=== PATIENT | female | born 1940 | race Caucasian/White ===

== ENCOUNTER 2017-09-14 06:39 | Inpatient (IN) ==
[~2017-09-14 06:39] MED LIST: ACETAMINOPHEN 500 MG TABLET PO ONE; FAMOTIDINE PB 20 MG/50 ML BAG IV ONE; LIDOCAINE 1% (10mg/ml) 2mL INJ PF SDV ID ONE; METOCLOPRAMIDE 10mg/2ml INJECTION IVP ONE; ONDANSETRON 4 MG/2 ML INJECTION IVP ONE
[2017-09-14 07:32] VITALS: BMI 35.9
[2017-09-14] MEDS: LR 1,000 ML IV SCH ×2 (07:40→09:09)
[2017-09-14] MEDS: NOZIN NASAL SWAB NAS SCH ×5 (07:45→23:04)
[2017-09-14] MEDS ORDERED: EPINEPHrine PF 0.25 MG, BUPIVACAINE 0.25% PF 30 ML, KETOROLAC INJ 60 MG in NS 30 ML OPSITE ONE (08:00)
--- NOTE | 2017-09-14 08:04 | History & Physical Update ---
- History and Physical Update Date: 09/14/17 Update: I evaluated this patient and found no changes in the history and clinical exam findings. The treatment plan and recommendations are also unchanged from the previous documentation.
--- NOTE | 2017-09-14 08:06 | Anesthesia Preoperative Report ---
Anesthesia Preoperative Record - Date and Time Date: 09/14/17 Preoperative Diagnosis: Lt TKA M17.12 NPO Since Date: 09/13/17 NPO Since Time: 23:00 Allergies/Adverse Reactions: Allergies Allergy/AdvReac Type Severity Reaction Status Date / Time Sulfa (Sulfonamide Allergy Intermediate HIVES Verified 09/14/17 07:22 Antibiotics) Iodinated Contrast- Oral and Allergy Mild RASH Verified 09/14/17 07:22 IV Dye meperidine HCl AdvReac Severe N/V Uncoded 09/14/17 07:22 - Vital Signs Vital Signs: Temperature 98.2 F 09/14/17 07:10 Pulse Rate 62 09/14/17 07:33 Respiratory Rate 16 09/14/17 07:10 Blood Pressure 183/79 H 09/14/17 07:10 Pulse Oximetry 96 09/14/17 07:10 Height and Weight: Height 5 ft 1 in Weight 86.3 kg Body Mass Index 35.9 - Medications Inpatient Medications: Current Medications Cefazolin Sodium (Kefzol 1 Gm Vial) 2 g IVP PREOP ONE Stop: 09/14/17 08:31 Epinephrine HCl 0.25 mg/Bupivacaine HCl 30 ml/Ketorolac Tromethamine 60 mg/ Sodium Chloride 62.25 mls @ 1 mls/hr OPSITE INTRAOP ONE PRN Reason: Protocol Stop: 09/16/17 22:14 Tranexamic Acid 3,000 mg/ (Sodium Chloride) 75 mls @ 0 mls/hr TOP INTRAOP ONE PRN Reason: As Directed Stop: 09/14/17 12:01 Lactated Ringer's (Lactated Ringers) 1,000 mls @ 50 mls/hr IV .Q20H [facility] Last Admin: 09/14/17 07:40 Dose: 50 mls/hr Isopropyl Alcohol (Nozin Nasal Swab) 1 each BECKY Q1M SHARRON Stop: 09/14/17 12:03 Last Admin: 09/14/17 07:45 Dose: 1 each Sodium Chloride (Iv Flush) 10 - 80 ml IV PRN PRN PRN Reason: Flushing Home Medications: Home Medications Medication Instructions Recorded Confirmed Type Levothyroxine Tab [Synthroid] 100 mcg PO DAILY #0 12/02/09 09/14/17 History Metformin HCl [Glucophage] 500 mg PO BID #0 12/02/09 09/14/17 History Albuterol HFA Inhaler [Ventolin 2 puff INH QID PRN 08/17/16 09/14/17 History Hfa 90 mcg/actuation] Apixaban [Eliquis] 5 mg PO BID 08/17/16 09/14/17 History Cholecalciferol (Vitamin D3) 1 tab PO DAILY 08/17/16 09/14/17 History [Vitamin D3] Citalopram [Celexa] 40 mg PO DAILY 08/17/16 09/14/17 History HydroCHLOROthiazide [Hydrodiuril] 25 mg PO DAILY 08/17/16 09/14/17 History Magnesium Oxide [Magnesium] 500 mg PO DAILY 08/17/16 09/14/17 History Potassium 1 tab PO DAILY 08/17/16 09/14/17 History ALPRAZolam [Xanax 0.25 mg] 0.25 mg PO BID PRN 09/06/17 09/14/17 History Amlodipine [Norvasc] 5 mg PO HS 09/06/17 09/14/17 History Atenolol [Tenormin] 25 mg PO DAILY 09/06/17 09/14/17 History Atorvastatin [Lipitor] 1 tab PO AM 09/06/17 09/14/17 History Lisinopril [Prinivil] 20 mg PO BID 09/06/17 09/14/17 History Omeprazole Magnesium [Prilosec Otc] 20 mg PO DAILY 09/06/17 09/14/17 History Is Patient on Beta Shital?: Yes - Medical History Respiratory: Reports: Asthma ("mild"), Other (h/o reactive airway disease) DENIES: Sleep Apnea Cardiovascular: Reports: Arrhythmia (A FIB, currently SR with PACs), Hypertension, High Cholesterol Gastrointestional: Reports: Gastroesophageal Reflux Disease (moderately controlled) Neuro/Musculoskeletal: Reports: Back Problems, Depression Renal/Endocrine: Reports: Thyroid Disease (hypothyroid), Other (metabolic syndrome) Comment Only: Diabetes Mellitus Type 2 (takes metformin for PCOS) Other History: Reports: Anesthesia Reactions (severe n/v), Cancer (BCC on face, excision) - Surgical History HEENT Surgeries: Reports: Tonsillectomy, Other (wears glasses) Cardiac Surgeries/Treatments: Reports: Other (stress test and echo) Endocrine Surgery/Treatments: Reports: Thyroidectomy GI Surgery/Treatments: Reports: Cholecystectomy, Colonoscopy Musculoskeletal Surgery/Tx: Reports: Total Hip Replacement (RIGHT), Other ( lumbar laminectomy) Reproductive Surgery/Treatment: Reports: Hysterectomy Anesthesia Reactions: Nausea and Vomiting Hx Family Anesthesia Reaction: No History of Motion Sickness: No - Social History Smoking Status: Never smoker Substance Use Type: does not use Alcohol Intake Frequency: does not drink - Pertinent Findings Laboratory: CBC and BMP 09/14/17 07:40 BMP 09/14/17 07:40 Sodium 136 Potassium 4.1 Chloride 100 Carbon Dioxide 24 BUN 15.0 Creatinine 0.7 Glucose 113 H Calcium 9.4 EKG: Sinus Rhythm - Physical Exam Respiratory Exam: Present: lungs clear, bilateral breath sounds equal Cardiovascular Exam: Present: regular rate and rhythm - Airway Assessment Mallampati Score: II TMD: 3 Fingerbreadths Neck Extension: good Overall Assessment: no airway concerns - ASA ASA Score: 3 - Plan Anesthesia: General Inhalation Gases, Neuroaxial Regional/Trunk Block: Spinal - Discussion Discussion: Discussed risks/options/alternatives of anesthesia and questions answered. Patient consents. Nursing pain assessment noted. Attestation Statement: Prior to the delivery of any anesthetic medication, I examined the patient, developed the plan, obtained the patient's consent and discussed the risk and benefits of the procedure with the patient/guardian. - Additional Information Seen by Anesthesia: Yes
[2017-09-14] MEDS ORDERED: MIDAZOLAM 2mg/2ml INJECTION ONE (08:16)
[2017-09-14] MEDS ORDERED: LIDOCAINE 2% (100mg/5mL) 5ml PF SDV ONE (08:19)
[2017-09-14] MEDS ORDERED: BUPIVACAINE 0.75%/DEXTROSE 8.5% SPINAL 2 ML AMPULE IJ ONE (08:19)
[2017-09-14] MEDS ORDERED: PROPOFOL 40 ML ONE (08:23)
[2017-09-14] MEDS ORDERED: VANCOMYCIN 1,000 MG INJECTION IAR ONE (08:27)
[2017-09-14] MEDS ORDERED: CEFAZOLIN 1 G INJECTION IVP ONE (08:30)
[2017-09-14] MEDS ORDERED: EPHEDRINE 50mg/ml INJECTION ONE (09:37)
[2017-09-14] MEDS ORDERED: ROPIVACAINE 0.5% (5mg/ml) 30ml INJ ONE (10:16)
--- NOTE | 2017-09-14 10:40 | Operative Note ---
- Procedure Preoperative Diagnosis: Left knee primary degenerative joint disease Postoperative Diagnosis: Same as preoperative diagnosis. Surgeon: Niesha Fernandez MD Materials Management Clerk: Gregory Moore Complications: None. Anesthesia: Spinal. Estimated Blood Loss: See Anesthesia Record. Fluids: Please see Anesthesia Record. Description of Procedure: Mrs. Khan and her left knee were identified and marked in the preoperative holding area. She was brought back to the operating suite. Spinal anesthetic was administered and she was placed supine on the operating table. The left lower extremity was prepped and draped in my normal sterile fashion. Timeout was performed. The [employer] robotic arm was used during the surgery. She had a fixed varus deformity with slight hyperextension. A standard anterior midline incision followed by medial parapatellar arthrotomy was performed. Anterior fat pad and meniscus were removed. The patella was everted and a patella osteotomy was performed leaving 12mm of bone. Tibial and femoral arrays and checkpoints were placed both within the original incision. The bone was then registered with the [employer] robot. Osteophytes were removed and gaps were captured both 90 and 0 degrees with correction. The knee was balanced placing 1 of varus in the femur and 1 of varus in the tibia. I left the extension gap 17 given her hyperextension. The [employer] robotic arm was then used to assist with the bone cuts. Posterior osteophytes and remaining meniscus were removed. Trial components were placed. We used a 3 femur and a 3 tibia with a 9 mm spacer and a 32 patella. She tracked well and was well balanced throughout range of motion. The tibia was stamped at the proper rotation. Trial components fit well and bone quality was adequate so we proceeded with press-fit components. Components were press-fit into place. A final spacer was also placed. She was a touch tight medially so used a 18-gauge needle to perform a partial release of the MCL. The knee was ranged one more time to ensure good stability, balance and patellar tracking. 1 g of TXA was allowed to sit in the wound for 5 minutes and then suctioned out. 1 g of vancomycin powder was then placed into the knee joint. The capsulotomy was then closed with #1 Vicryl. I then left my hotel assistant manager to close the subcutaneous tissue with 2-0 Vicryl and a running 0 V-lock. Running 4-0 Monocryl will be used in the subcuticular layer. After drapes are removed patient will be taken to recovery room under the care of anesthesia.
[2017-09-14] MEDS ORDERED: ONDANSETRON 4 MG/2 ML INJECTION IVP PRN (11:12)
--- NOTE | 2017-09-14 11:35 | XRay Report ---
Indication: postoperative image PROCEDURE: XR knee LT 2V: Encounter: Initial Comparison: July 10, 2017 Findings: Postoperative changes of left total knee replacement are seen. There is expected postoperative subcutaneous gas. No evidence of hardware failure or acute fracture. No retained radiopaque surgical instruments or sponges. Overlying material causing artifact. Impression: New left total knee prosthesis without evidence of immediate complication. .
[2017-09-14] MEDS ORDERED: LORazepam 1 MG TABLET PO PRN (11:52)
[2017-09-14] MEDS ORDERED: NOZIN NASAL SWAB NAS ONE (11:52)
[2017-09-14] MEDS ORDERED: DiphenhydrAMINE 25 MG CAPSULE PO PRN (11:52)
[2017-09-14] MEDS ORDERED: DiphenhydrAMINE 50 MG/ML INJECTION IVP PRN (11:52)
[2017-09-14] MEDS: NS 1,000 ML IV SCH (11:55)
[2017-09-14] MEDS ORDERED: TRANEXAMIC ACID 3,000 MG in NS 45 ML TOP ONE (12:00)
[2017-09-14] MEDS ORDERED: SALINE FLUSH 10ml SYRINGE IV PRN (12:00)
[2017-09-14] MEDS: ACETAMINOPHEN 325 MG TABLET PO SCH ×3 (12:23→20:30)
[2017-09-14] MEDS ORDERED: ALBUTEROL 2.5mg/3ml (0.083%) NEB AEROSOL PRN (12:43)
[2017-09-14] MEDS: Oxycodone *IR* 5 MG TABLET PO PRN ×2 (13:38→19:31)
[2017-09-14] MEDS: ONDANSETRON 4 MG/2 ML INJECTION IVP PRN ×2 (14:30→19:31)
[2017-09-14] MEDS: INSULIN ASPART 100unit/ml INJECTION SQ PRN (14:31)
[2017-09-14] MEDS: CEFAZOLIN 2 G in NS 100 ML IV SCH (17:08)
--- NOTE | 2017-09-14 18:58 | Anesthesia Postoperative Note ---
- Date and Time Date: 09/14/17 Time: 11:55 - Status Patient Participated in Evaluation: Patient Participated in Person Vital Signs: Temperature 97.8 F 09/14/17 12:03 Pulse Rate 67 09/14/17 18:03 Respiratory Rate 16 09/14/17 16:09 Blood Pressure 124/62 09/14/17 18:03 Pulse Oximetry 97 09/14/17 18:03 Respiratory Function: Airway Patent Cardiovascular Function: Regular Pulse EKG: Sinus Rhythm Mental Status: Alert and Oriented Pain Intensity: 0 Hydration: IV Infusing Complications During Recover: None Apparent - Follow-Up Instructions Instructions: Per Surgeon
--- NOTE | 2017-09-14 18:59 | Anesthesia Procedure Note ---
Peripheral Nerve Blockade - Procedure Physician: Mike Fernandez MD Date: 09/14/17 Surgical Procedure: L TKA Discussion: Discussed risks/options/alternatives of anesthesia and questions answered. Patient consents. Nursing pain assessment noted. Block Start: 11:14 Block Stop: 11:17 Block Employed: Adductor Canal-Left Indication: Post-Operative Pain Approach: Left Side Confirmed Position: Supine Patient: Consent, Risks/Benefits Discussed, Informed, Post Block Act. Discussed IV Sedation: No (spinal) Initial Vital Signs: Temperature 98.2 F 09/14/17 07:10 Temperature Source Oral 09/14/17 07:10 Pulse Rate 70 09/14/17 07:10 Respiratory Rate 16 09/14/17 07:10 Blood Pressure 183/79 H 09/14/17 07:10 Blood Pressure Mean 113 09/14/17 07:10 Blood Pressure Position Sitting 09/14/17 07:10 Pulse Oximetry 96 09/14/17 07:10 Oxygen Delivery Method 09/14/17 07:10 Post Vital Signs: Temperature 97.8 F 09/14/17 12:03 Pulse Rate 67 09/14/17 18:03 Respiratory Rate 16 09/14/17 16:09 Blood Pressure 124/62 09/14/17 18:03 Pulse Oximetry 97 09/14/17 18:03 Initial Pain Pain Score: 0 Post Block Pain Score: 0 Prep: Chlorhexadine/ETOH Ultrasound Used?: Yes - Injectate Ropivacaine (%): 0.5 Ropivacaine (mL): 30 Was Epi 1:200,000 Used?: No Injection: Injection made incrementally with constant monitoring and aspiration every ml
[2017-09-14] MEDS: DOCUSATE SODIUM 100 MG CAPSULE PO SCH (20:30)
[2017-09-14] MEDS: LISINOPRIL 20 MG TABLET PO SCH (20:30)
[2017-09-14] MEDS: AMLODIPINE 5 MG TABLET PO SCH (20:31)
[2017-09-14] MEDS: SENNOSIDES 8.6 MG TABLET PO SCH (20:31)
[2017-09-14] MEDS: ATORVASTATIN 20 MG TABLET PO SCH (20:31)
[2017-09-14] MEDS: APIXABAN 5 MG TABLET PO SCH (20:31)
[2017-09-15] MEDS: NS 1,000 ML IV SCH ×2 (00:24→14:20)
[2017-09-15] MEDS: CEFAZOLIN 2 G in NS 100 ML IV SCH (00:24)
[2017-09-15] MEDS: ONDANSETRON 4 MG/2 ML INJECTION IVP PRN (04:12)
[2017-09-15] MEDS: Oxycodone *IR* 5 MG TABLET PO PRN ×3 (04:37→22:59)
[2017-09-15] MEDS: NOZIN NASAL SWAB NAS SCH ×4 (05:02→21:02)
--- NOTE | 2017-09-15 07:57 | Orthopedic Progress Note ---
Date: Date: 09/15/17 Time: 751 Subjective/Severity of Illness: Luz is doing well this AM. No CP, cough or SOA. She has been up with good tolerance. She is hopeful to go home today. Pain is a 3-4 level. Some nausea with pain meds. Orthopedic Exam Vital signs: Temperature 96.8 F 09/15/17 07:30 Pulse Rate 82 09/15/17 07:30 Respiratory Rate 14 09/15/17 07:30 Blood Pressure 133/62 09/15/17 07:30 Pulse Oximetry 96 09/15/17 07:30 - Constitutional General Appearance: Present: alert, cooperative, no acute distress - Respiratory Exam Present: non-labored - Cardiovascular Exam Present: pedal pulses intact - Extremities Exam Present: pulses intact. Absent: calf tenderness - Dressing Dressing: bloody drainage (Mild shaddowing on the lower dressing. ) - Integumentary Exam Present: pink, warm, dry - Neurological Exam Present: intact to light touch, no deficits - Psychiatric Exam Present: alert - Labs Result Diagrams: 09/15/17 04:24 09/15/17 04:24 Abnormal lab results 09/14/17 09/15/17 09/15/17 Range/Units 07:40 04:24 04:24 Hgb 10.6 L (12-16) GM/DL Sodium 134 L (136-146) MEQ/L BUN 19.0 H (7-17) MG/DL Glucose 113 H 117 H (65-110) MG/DL Calcium 8.3 L D (8.4-10.2) MG/DL H & H 09/15/17 Range/Units 04:24 Hgb 10.6 L (12-16) GM/DL Orthopedic Assessment and Plan (1) Primary osteoarthritis of left knee Status: Chronic Assessment and Plan: Luz is doing well except for some off and on nausea. She wants to stay with the Oxycodone for now. Shadowing on the dressing. Observe. Aspirin 81mg BID for 6 weeks to cover for DVT. Hold HCTZ this am due to slight drop in Na. Mobilize with PT / OT. Case mgmt for discharge planning. - Anticoagulation Therapy Anticoagulation: ASA 81 mg PO BID x6 weeks Hospital Course Summary Disclaimer: The visit summary below is not to be considered part of the above Progress Note.
[2017-09-15] MEDS: APIXABAN 5 MG TABLET PO SCH ×2 (08:31→20:46)
[2017-09-15] MEDS: ACETAMINOPHEN 325 MG TABLET PO SCH ×4 (08:31→20:46)
[2017-09-15] MEDS: ATENOLOL 25 MG TABLET PO SCH (08:32)
[2017-09-15] MEDS: CITALOPRAM 40 MG TABLET PO SCH (08:32)
[2017-09-15] MEDS: DOCUSATE SODIUM 100 MG CAPSULE PO SCH ×2 (08:32→20:46)
[2017-09-15] MEDS: OMEPRAZOLE 20 MG CAPSULE PO SCH (08:33)
[2017-09-15] MEDS: POLYETHYL GLYCOL 3350 17gm PACKET PO SCH (08:33)
[2017-09-15] MEDS: LISINOPRIL 20 MG TABLET PO SCH ×2 (08:33→20:46)
[2017-09-15] MEDS: MAGNESIUM OXIDE 400 MG TABLET PO SCH (08:33)
[2017-09-15] MEDS ORDERED: POTASSIUM PO SCH (09:00)
[2017-09-15] MEDS ORDERED: LEVOTHYROXINE 100 MCG TABLET PO SCH (09:00)
[2017-09-15] MEDS: ONDANSETRON ODT 4 MG TABLET PO PRN ×2 (10:48→22:59)
[2017-09-15] MEDS ORDERED: SENNOSIDES 8.6 MG TABLET PO PRN (11:10)
[2017-09-15] MEDS ORDERED: SCOPOLAMINE 1mg/3 days PATCH (Eq. 1.5 Patch) TD SCH (13:45)
[2017-09-15] MEDS: TRAMADOL 50 MG TABLET PO PRN ×2 (14:23→20:53)
[2017-09-15] MEDS: ALPRAZolam 0.25 MG TABLET PO PRN ×2 (15:23→22:06)
[2017-09-15] MEDS: ATORVASTATIN 20 MG TABLET PO SCH (20:46)
[2017-09-15] MEDS: AMLODIPINE 5 MG TABLET PO SCH (20:46)
[2017-09-15] MEDS: SENNOSIDES 8.6 MG TABLET PO SCH (20:46)
[2017-09-16] MEDS: NS 1,000 ML IV SCH ×2 (02:39→13:52)
[2017-09-16] MEDS: NOZIN NASAL SWAB NAS SCH ×4 (04:52→21:14)
[2017-09-16] MEDS: TRAMADOL 50 MG TABLET PO PRN (04:52)
[2017-09-16] MEDS: LEVOTHYROXINE 100 MCG TABLET PO SCH (05:38)
[2017-09-16] MEDS: ONDANSETRON ODT 4 MG TABLET PO PRN (06:32)
[2017-09-16] MEDS: ACETAMINOPHEN 325 MG TABLET PO SCH ×4 (08:57→21:13)
[2017-09-16] MEDS: DOCUSATE SODIUM 100 MG CAPSULE PO SCH ×2 (08:58→21:13)
[2017-09-16] MEDS: MAGNESIUM OXIDE 400 MG TABLET PO SCH (08:59)
[2017-09-16] MEDS: ATENOLOL 25 MG TABLET PO SCH (08:59)
[2017-09-16] MEDS: CITALOPRAM 40 MG TABLET PO SCH (09:00)
[2017-09-16] MEDS: LISINOPRIL 20 MG TABLET PO SCH ×2 (09:00→21:14)
[2017-09-16] MEDS: OMEPRAZOLE 20 MG CAPSULE PO SCH (09:00)
[2017-09-16] MEDS: POLYETHYL GLYCOL 3350 17gm PACKET PO SCH (09:00)
[2017-09-16] MEDS: APIXABAN 5 MG TABLET PO SCH ×2 (09:00→21:13)
[2017-09-16] MEDS: INSULIN ASPART 100unit/ml INJECTION SQ PRN (10:09)
--- NOTE | 2017-09-16 10:13 | Orthopedic Progress Note ---
Date: Date: 09/16/17 Time: 1010 Subjective/Severity of Illness: Mrs. Khan is lying in bed this morning during rounds. She states her pain has been 5 with Tramadol. Her nausea is the most bothersome and is difficult to tell if when she is in pain her nausea worsens. She has not vomited since evening, though she felt close this morning. Na down again this morning to 132. She denies any headaches, CP, SOA. She has been tolerating PO and feels crackers help. Hgb 9.2 this morning Orthopedic Exam Vital signs: Temperature 96.8 F 09/15/17 07:30 Pulse Rate 82 09/15/17 07:30 Respiratory Rate 14 09/15/17 07:30 Blood Pressure 133/62 09/15/17 07:30 Pulse Oximetry 96 09/15/17 07:30 - Constitutional General Appearance: Present: alert, orientated x3, cooperative, no acute distress - Respiratory Exam Present: CTA bilaterally, non-labored - Cardiovascular Exam Present: Regular Rate/Rhythm, pedal pulses intact - Abdominal Exam Present: soft, normoactive BS x4. Absent: tenderness, distended - Extremities Exam Present: pulses intact. Absent: calf tenderness - Dressing Dressing: bloody drainage (Mild shaddowing on the lower dressing. ) - Integumentary Exam Present: pink, warm, dry - Neurological Exam Present: intact to light touch, no deficits - Psychiatric Exam Present: alert, oriented - Labs Result Diagrams: 09/16/17 04:27 09/16/17 04:27 Abnormal lab results 09/16/17 09/16/17 Range/Units 04:27 04:27 Hgb 9.2 L D (12-16) GM/DL Sodium 132 L (136-146) MEQ/L Carbon Dioxide 20 L (22-30) MEQ/L Glucose 114 H (65-110) MG/DL Calculated Osmolality 258 L (261-280) MOSM/KG Calcium 8.1 L (8.4-10.2) MG/DL Specimen Hemolysis 35 H (0-25) H & H 09/15/17 09/16/17 Range/Units 04:24 04:27 Hgb 10.6 L 9.2 L D (12-16) GM/DL Orthopedic Assessment and Plan (1) Primary osteoarthritis of left knee Status: Chronic Assessment and Plan: Nausea- will add Reglan 5mg scheduled ACHS, in addition to Zofran and scopolamine. Hyponatremia- 132 from 134. 2L fluid restriction. will recheck Na at 1400. Continue to hold HCTZ Weight increased, will recheck and monitor daily weights. Aspirin 81mg BID for 6 weeks to cover for DVT. Mobilize with PT / OT. Case mgmt for discharge planning. Plan on discharging home with home health. Hospital Course Summary Disclaimer: The visit summary below is not to be considered part of the above Progress Note.
[2017-09-16] MEDS: METOCLOPRAMIDE 5mg TABLET PO SCH ×3 (11:14→21:13)
[2017-09-16] MEDS: Oxycodone *IR* 5 MG TABLET PO PRN ×3 (11:14→21:12)
[2017-09-16] MEDS ORDERED: BISACODYL 10 MG SUPPOSITORY RECTALLY SCH (20:00)
[2017-09-16] MEDS: AMLODIPINE 5 MG TABLET PO SCH (21:13)
[2017-09-16] MEDS: SENNOSIDES 8.6 MG TABLET PO SCH (21:13)
[2017-09-16] MEDS: ATORVASTATIN 20 MG TABLET PO SCH (21:14)
[2017-09-17] MEDS: METOCLOPRAMIDE 5mg TABLET PO SCH ×4 (05:55→21:06)
[2017-09-17] MEDS: Oxycodone *IR* 5 MG TABLET PO PRN ×4 (05:55→22:20)
[2017-09-17] MEDS: LEVOTHYROXINE 100 MCG TABLET PO SCH (05:56)
[2017-09-17] MEDS: NOZIN NASAL SWAB NAS SCH ×3 (05:56→21:06)
[2017-09-17] MEDS: OMEPRAZOLE 20 MG CAPSULE PO SCH (08:51)
[2017-09-17] MEDS: DOCUSATE SODIUM 100 MG CAPSULE PO SCH ×2 (08:51→21:06)
[2017-09-17] MEDS: ACETAMINOPHEN 325 MG TABLET PO SCH ×4 (08:52→21:05)
[2017-09-17] MEDS: APIXABAN 5 MG TABLET PO SCH ×2 (08:52→21:05)
[2017-09-17] MEDS: POLYETHYL GLYCOL 3350 17gm PACKET PO SCH ×2 (08:53→14:07)
[2017-09-17] MEDS: MAGNESIUM OXIDE 400 MG TABLET PO SCH (08:53)
[2017-09-17] MEDS: CITALOPRAM 40 MG TABLET PO SCH (08:53)
[2017-09-17] MEDS: ATENOLOL 25 MG TABLET PO SCH (08:58)
[2017-09-17] MEDS: LISINOPRIL 20 MG TABLET PO SCH (08:58)
[2017-09-17] MEDS ORDERED: FUROSEMIDE 20 MG/2 ML INJECTION IVP ONE (09:14)
--- NOTE | 2017-09-17 09:16 | Orthopedic Progress Note ---
Date: Date: 09/17/17 Time: 914 Subjective/Severity of Illness: Luz is sitting up in the chair this morning eating breakfast. She continues to have some nausea, but overall has improved significantly. Denies emesis. Pain has been well controlled overall,patient states nausea worsens when in pain. Weight increased 9kg from admission, unsure if patient weighed with polar pack in place. Na+ 131 from 133 yesterday with 2L fluid restriction. Denies CP, SOA, headaches, dizziness. Tolerating PO. Denies BM since , passing flatulence, denies abdominal pain. Hgb 8.6 Orthopedic Exam Vital signs: Temperature 96.8 F 09/15/17 07:30 Pulse Rate 82 09/15/17 07:30 Respiratory Rate 14 09/15/17 07:30 Blood Pressure 133/62 09/15/17 07:30 Pulse Oximetry 96 09/15/17 07:30 - Constitutional General Appearance: Present: alert, orientated x3, cooperative, no acute distress - Respiratory Exam Present: CTA bilaterally, non-labored - Cardiovascular Exam Present: Regular Rate/Rhythm, pedal pulses intact - Abdominal Exam Present: soft, normoactive BS x4. Absent: tenderness, distended - Extremities Exam Present: pulses intact. Absent: calf tenderness - Dressing Dressing: bloody drainage (Mild shaddowing on the lower dressing. ) Comments: scant dried bloody drainage, mepilex dressing changed since anticipated discharge home today. - Integumentary Exam Present: pink, warm, dry - Neurological Exam Present: intact to light touch, no deficits - Psychiatric Exam Present: alert, oriented - Labs Result Diagrams: 09/17/17 14:58 09/17/17 12:56 Abnormal lab results 09/16/17 09/17/17 09/17/17 Range/Units 14:07 08:10 08:10 Hgb 8.6 L (12-16) GM/DL Sodium 133 L 131 L (136-146) MEQ/L Chloride 97 L (98-107) MEQ/L BUN 23.0 H (7-17) MG/DL Glucose 116 H (65-110) MG/DL Calculated Osmolality 258 L (261-280) MOSM/KG Calcium 8.2 L (8.4-10.2) MG/DL H & H 09/15/17 09/16/17 09/17/17 Range/Units 04:24 04:27 08:10 Hgb 10.6 L 9.2 L D 8.6 L (12-16) GM/DL Orthopedic Assessment and Plan (1) Primary osteoarthritis of left knee Status: Chronic Assessment and Plan: Nausea- significantly improved today. Continue Zofran ODT prn and scheduled reglan. Hyponatremia- 131 from 133. Serum osmolality 258. Weight increased, will give lasix 20mg IV and recheck Na at 1300. Continue to hold HCTZ Home Eliquis 5mg BID restarted to cover for DVT. Mobilize with PT / OT. Case mgmt for discharge planning. Plan on discharging home with home health. Nursing report later today near syncopal episode getting up to bathroom with significant dizziness. Hospitalist consulted for further evaluation. - Anticoagulation Therapy Anticoagulation: Resume home anticoagulant - Additional Diagnoses Atrial Fibrillation: resume medications, other (hx afib, has been in regular rythm during hospital stay, eliquis restarted) Hypertension: stable, resume medications Diabetes: resume oral medications Anemia: no intervention required, patient was asymptomatic, labs monitored Hospital Course Summary Disclaimer: The visit summary below is not to be considered part of the above Progress Note.
--- NOTE | 2017-09-17 09:33 | Discharge Summary ---
Orthopedic Discharge Info Date of admission: 09/14/17 Anticipated date of discharge: 09/17/17 Primary care physician: Sharon Pa MD Attending Physician: Mike Fernandez MD Consults: 09/14/17 06:48 Consult to Anesthesiology [CONS] Routine Reason For Exam: Preoperative Assessment 09/14/17 11:52 Case Management Consult [CONS] Routine Reason For Exam: Discharge Planning DME-Walker [CONS] Routine Height: 5 ft 1 in Weight: 86.3 kg Total Joint Outpatient Therapy [CONS] Routine Comment: Remove dressing in 2 weeks - Discharge Diagnosis (1) Primary osteoarthritis of left knee Status: Chronic - Procedures Procedures: Procedures Hip bearing surface, [id number] (03/24/09) Total hip replacement (03/24/09) - Laboratory Result Diagrams: 09/19/17 05:30 09/19/17 05:30 Laboratory: Abnormal lab results 09/16/17 09/17/17 09/17/17 Range/Units 14:07 08:10 08:10 Hgb 8.6 L (12-16) GM/DL Sodium 133 L 131 L (136-146) MEQ/L Chloride 97 L (98-107) MEQ/L BUN 23.0 H (7-17) MG/DL Glucose 116 H (65-110) MG/DL Calculated Osmolality 258 L (261-280) MOSM/KG Calcium 8.2 L (8.4-10.2) MG/DL H & H 09/15/17 09/16/17 09/17/17 Range/Units 04:24 04:27 08:10 Hgb 10.6 L 9.2 L D 8.6 L (12-16) GM/DL Orthopedic Discharge HPI - HPI Comments This patient was admitted for elective surgical tx of end stage degenerative joint disease that failed to respond to conservative treatment. Further details of this is found in the admission H&P. Orthopedic Hospital Course Hospital course: 09/17/17 09:23 After appropriate preoperative clearance and signing of operative consent, the patient was given IV antibiotics, according to orthopedic protocol. The patient was taken to the operating room and underwent elective joint arthroplasty. Following surgery, antibiotics were discontinued less than 24 hours according to joint protocol. Appropriate anticoagulants were initiated by resuming home Eliquis 5mg BID and SCDs added for DVT prevention. The dressing was clean, dry, and intact. Pain control was obtained via multimodal approach. Bowel motivation addressed with scheduled and PRN medications. Early mobilization was initiated through PT services. Discharge arrangements made by a collaborative effort between the patient and Case Management. Patient experienced significant nausea post-operatively with emesis that evening. Zofran was initiated, then scopolamine patch added post-op day 1 when patient unable to perform PT. Roxicodone was switched to Tramadol as this thought to be contributing to nausea. Post op day 2 patient continued to have nausea which she felt was worse than the pain. Reglan 5mg was initiated ACHS. Patient was then able to meet PT goals. Hyponatremia- post-op day 1 Na 134, IVF discontinued and HCTZ was held. Post op day 2 Na decreased to 132, 2L fluid restriction was initiated and HCTZ held with recheck at 133. Post op day 3 Na decreased to 131, serum osmolality 258. Patient weight increase by 7kg since admission, questioned accuracy of weights initially and were rechecked. Lasix 20mg given IV with recheck Na Patient has follow up scheduled with Dr. Inman (PCP) on Monday will give update to recheck sodium outpatient. Home medications were resumed for HTN, DM, and history of afib. BP and rate were well controlled. Patient SR during hospital stay. BG monitored with SS initiated initially until tolerating PO well. Follow-up is scheduled in 2-3 weeks. Discharge instructions given by orthopedic providers and nursing staff at discharge. Discharge condition was good. 09/17/17 09:40 Care extended to > 2 midnight stays?: Yes Discharge Plan - Med Rec/Dispo Referrals/Follow Up: Sharon Pa MD [Primary Care Provider] - 09/21/17 1:00 pm Gregory Moore PA [Physician Fire Sprinkler Designer] - 10/09/17 9:30 am Ivonne Instructions: [facility] [place] [facility] [place] Postop Instructions Additional Instructions: [facility] WILL CONTACT YOU TO MAKE APPOINTMENT TO START SERVICES FOR THERAPY. Prescriptions: New Acetaminophen [Tylenol] 650 mg PO QID tab Docusate Sodium [Colace] 100 mg PO BID cap Ondansetron Odt [Zofran Odt Tablet] 4 mg PO Q4H PRN #20 tab PRN Reason: Nausea &/Or Vomiting Oxycodone *IR* [Roxicodone *Ir*] 5 mg PO Q3H PRN #60 tab PRN Reason: Pain Continue Magnesium Oxide [Magnesium] 500 mg PO DAILY Cholecalciferol (Vitamin D3) [Vitamin D3] 1 tab PO DAILY Citalopram [Celexa] 40 mg PO DAILY Apixaban [Eliquis] 5 mg PO BID Omeprazole Magnesium [Prilosec Otc] 20 mg PO DAILY Atenolol [Tenormin] 25 mg PO DAILY Amlodipine [Norvasc] 5 mg PO HS ALPRAZolam [Xanax 0.25 mg] 0.25 mg PO BID PRN PRN Reason: Anxiety Levothyroxine Tab [Synthroid] 100 mcg PO DAILY #0 Metformin HCl [Glucophage] 500 mg PO BID #0 Potassium 1 tab PO DAILY Albuterol HFA Inhaler [Ventolin Hfa 90 mcg/actuation] 2 puff INH QID PRN PRN Reason: Allergy Symptoms Atorvastatin [Lipitor] 1 tab PO AM Changed Lisinopril [Prinivil] 10 mg PO BID #1 Discontinued HydroCHLOROthiazide [Hydrodiuril] 25 mg PO DAILY - Disposition 03 To [facility]) - Dismissal Complete Discharge Instructions are:: Complete
[2017-09-17] MEDS ORDERED: LISINOPRIL 20 MG TABLET PO SCH (14:45)
--- NOTE | 2017-09-17 14:47 | Consult Note ---
Consult Information - Data of Consult Consult date: 09/17/17 Requesting Physician: Mike Fernandez MD Primary Care Provider: Sharon Pa MD - Consult Narrative Reason for consult: Hyponatremia History of present illness: Luz is a very pleasant 77 yo WF who was admitted for elective TKR on 09/14/17. She has recovered fairly well, but has struggled with some hyponatremia since surgery. She did receive some IVF and was placed on a fluid restriction yesterday as well. Sodium has remained a bit low, and her serum osmo is low, reflecting likely a degree of hemodilution. I D/W Shu Shook APRN, this morning and Lasix 20mg IV was given to help offset the hemodilution. Patient's sodium responded well, but patient developed a near syncopal event this afternoon. Due to this concern, a medical management consult was requested from our service. Patient reports she is now feeling fairly well. Reports near-syncopal event was a fairly sudden onset, in which she became very weak and had to sit down. She reports that she has been quite nauseated since surgery, but reports onset occurs when she is in significant pain. Once pain is relieved, the nausea is better. She was trialed on Tramadol due to nausea, but reports that Oxycodone does seem to be more effective for her and does not seem to cause more nausea that the tramadol. In regards to her hyponatremia, this is not a known chronic problem for her. She is on HCTZ at home. She does have intermittent bouts of similar episodes of vertigo and near syncope- this usually occurs when going from lying to standing. Usually occurred after sitting up at PT prior to surgery. She denies known VHD. Recent echo by Dr. Feng- EF is preserved. No significant aortic valve issues documented. +LAE. She does have chronic atrial fib with rate control/AC as chosen treatment. Patient reports that her lightheadedness and weakness has resolved. D/W her and daughter at length today. Past Medical History Medical History: Medical History (Last Reviewed 07/10/17 @ 16:16 by Mike Fernandez MD) Thyroid disease (Chronic) Hypertension (Chronic) GERD (gastroesophageal reflux disease) (Chronic) High cholesterol (Chronic) Atrial fibrillation (Chronic) Medical History Updates: EF 55% 07/2017. LAE, Mild MR, Mild TR. DM2. Depression/anxiety Surgical History: T &A 1959. Cholecystectomy 1964. Hysterectomy 1982. thyroidectomy 1998. YUSUF 2009. Laminectomy 2010. 2 BCC's removed from face 4- 7 yrs ago. Left knee 2018 Family History: Family History (Last Reviewed 07/10/17 @ 16:16 by Mike Fernandez MD) Unknown No problems noted. Family History: As Above - Social History Substance use type: does not use Housing: house Current occupational status: retired Current residence: Apartment/Private Home Review of Systems All systems PM: 10-point ROS was reviewed, no additional remarkable complaints except Review of systems: See HPI. Main concern has been significant post-operative pain with resultant nausea. Acute onset lightheadedness/vertigo- now resolved. No chest pain. No SOA. Known atrial fib. Medications Home Medications Medication Instructions Recorded Confirmed Type Levothyroxine Tab [Synthroid] 100 mcg PO DAILY #0 12/02/09 09/14/17 History Metformin HCl [Glucophage] 500 mg PO BID #0 12/02/09 09/14/17 History Albuterol HFA Inhaler [Ventolin 2 puff INH QID PRN 08/17/16 09/14/17 History Hfa 90 mcg/actuation] Apixaban [Eliquis] 5 mg PO BID 08/17/16 09/14/17 History Cholecalciferol (Vitamin D3) 1 tab PO DAILY 08/17/16 09/14/17 History [Vitamin D3] Citalopram [Celexa] 40 mg PO DAILY 08/17/16 09/14/17 History Magnesium Oxide [Magnesium] 500 mg PO DAILY 08/17/16 09/14/17 History Potassium 1 tab PO DAILY 08/17/16 09/14/17 History ALPRAZolam [Xanax 0.25 mg] 0.25 mg PO BID PRN 09/06/17 09/14/17 History Amlodipine [Norvasc] 5 mg PO HS 09/06/17 09/14/17 History Atenolol [Tenormin] 25 mg PO DAILY 09/06/17 09/14/17 History Atorvastatin [Lipitor] 1 tab PO AM 09/06/17 09/14/17 History Omeprazole Magnesium [Prilosec Otc] 20 mg PO DAILY 09/06/17 09/14/17 History Acetaminophen [Tylenol] 650 mg PO QID tab 09/17/17 Rx Docusate Sodium [Colace] 100 mg PO BID cap 09/17/17 Rx Lisinopril [Prinivil] 10 mg PO BID #1 09/17/17 09/14/17 Rx Ondansetron Odt [Zofran Odt Tablet] 4 mg PO Q4H PRN #20 tab 09/17/17 Rx Oxycodone *IR* [Roxicodone *Ir*] 5 mg PO Q3H PRN #60 tab 09/17/17 Rx Allergies Allergy/AdvReac Type Severity Reaction Status Date / Time Sulfa (Sulfonamide Allergy Intermediate HIVES Verified 09/14/17 07:22 Antibiotics) Iodinated Contrast- Oral and Allergy Mild RASH Verified 09/14/17 07:22 IV Dye meperidine HCl AdvReac Severe N/V Uncoded 09/14/17 07:22 Exam Vital Signs: Temperature 98.8 F 09/17/17 12:00 Pulse Rate 65 09/17/17 12:00 Respiratory Rate 18 09/17/17 12:00 Blood Pressure 119/50 09/17/17 12:00 Pulse Oximetry 96 09/17/17 12:00 Height/Weight/BMI: Height 1.55 m Weight 93.44 kg Body Mass Index 35.9 - Constitutional Present: no acute distress, obese, cooperative - Routine HEENT Exam Head: Present: normocephalic, atraumatic Eye: Present: EOMI, PERRL ENT: Present: mucous membranes moist - Routine Neck Exam Present: supple, full ROM, trachea midline. Absent: JVD, normal carotid upstroke (Increased carotid upstroke), tenderness - Routine Respiratory Exam Present: CTA bilaterally. Absent: rales, rhonchi, wheezes, crackles - Routine Cardiovascular Exam Present: S1, S2, no murmur, irregular rhythm, irregularly irregular - Routine Abdominal Exam Present: soft, normoactive bowel sounds, non distended, non tender - Routine Extremities Exam Present: no edema, pulses intact, normal capillary refill. Absent: full ROM, calf tenderness - Routine Skin Exam Present: intact, dry, warm - Routine Neurological Exam Present: alert, oriented X3, CN II-XII intact, moving all extremities - Routine Psychiatric Exam Present: normal affect, normal thought process, cooperative Results - Labs CBC & Chem 7: 09/17/17 14:58 09/17/17 12:56 Labs: Laboratory Results - last 48 hr 09/16/17 04:27 Hgb 9.2 L D Turbidity Sodium Potassium Chloride Carbon Dioxide Anion Gap BUN Creatinine GFR Calculation BUN/Creatinine Ratio Glucose Glucometer Calculated Osmolality Calcium Icterus Index Specimen Hemolysis 09/16/17 09/16/17 09/16/17 04:27 06:39 14:07 Hgb Turbidity < 20 Sodium 132 L 133 L Potassium 4.1 Chloride 103 Carbon Dioxide 20 L Anion Gap 9 BUN 17.0 Creatinine 0.8 GFR Calculation 69 BUN/Creatinine Ratio 21 Glucose 114 H Glucometer 122 Calculated Osmolality 258 L Calcium 8.1 L Icterus Index < 2 Specimen Hemolysis 35 H 09/17/17 09/17/17 09/17/17 08:10 10:32 12:56 Hgb Turbidity < 20 Sodium 131 L 133 L Potassium 4.0 Chloride 97 L Carbon Dioxide 27 D Anion Gap 7 BUN 23.0 H Creatinine 1.1 D GFR Calculation 48 BUN/Creatinine Ratio 21 Glucose 116 H Glucometer 133 Calculated Osmolality 258 L Calcium 8.2 L Icterus Index < 2 Specimen Hemolysis < 15 Assessment and Plan (1) Hyponatremia Status: Acute Assessment and Plan: Impression: Hyponatremia, mild- dilutional Near-syncopal event Hx of orthostatic near-syncope Anemia, acute on chronic HTN HLD Anxiety DM2 S/P Left TKR. Atrial Fib, rate controlled Plan: 09/17/2017 Suspect that hyponatremia is dilutional, given positive response to diuretic therapy. Based on exam, am concerned she has some underlying aortic insufficiency clinically (echo was ok, however). given near-syncopal event. This may have worsened with volume being offloaded. Her BP is low normal, and she is on multiple anti-hypertensives. Recommend continue to hold HCTZ. Decrease Lisinopril to 1/2 dose- 10mg PO BID. May need to hold Amlodipine. Continue BB for HR control. Allow mild passive hypertension to prevent near-syncope. She is on multiple medications that can contribute to low sodium in the elderly - HCTZ, Celexa, Tramadol. Hold HCTZ. Continue Celexa. DC Tramadol. She is tolerating Oxycodone- should be ok for pain control. Will check orthostatic vitals now. If her symptoms improve, should be ok to dismiss home in AM. Will recheck a CBC now. Labs in AM. Will need to see Dr. Pa in the next week following discharge. Thank you for the consult- we will follow this pt with you. I have seen and examined this patient independently of midlevel above. I agree with assessment and plan other than what is noted below. Patient notes that she has had trouble with getting dizzy upon standing for some time prior to this admission, so much that she is in physical therapy for it. Two weeks ago, she had a fall that was precipitated by getting up and turning her head too quickly. She fell to the ground and lost control of her bowels. She did not lose consciousness. She says that her sodium has been a couple points low before. Gen: Alert and oriented X 3. NAD HEENT: nc/at. PERRL/EOMI. neck supple. no nystagmus CV: irregular, RR, no murmur Lungs: CTAB Abd: Soft, NT, ND, + BS Ext: trace edema bilateral LE Neuro: no focal signs Agree with holding HCTZ. Will also hold norvasc temporarily as she has relative hypotension postoperatively. Lisinopril dose decreased to 10mg BID Continue coreg. Likely on too many anti-hypertensives, especially in light of recent surgery, pain control, and post-op anemia (hgb has dropped 2 points post-operatively even in light of lasix). I don't feel that her sodium is causing her symptoms today - stop fluid restriction and monitor. However, HCTZ may not be a good option going forward. No active blood loss noted, but will monitor h/h in am. Repeat orthostatics in am. Add TSH to am labs as patient has had a thyroidectomy. Ca only mildly low. Add vitamin B12 to am labs. May benefit from outpatient carotid doppler if symptoms persist at outpatient follow up. Has reportedly had a recent normal echo. DVT Prophylaxis: Eliquis GI Prophylaxis: Omeprazole Resuscitation Status: Full Code - Physician Narrative Narrative: Date: 09/17/17 Time: 1440 Hospital Course Summary Disclaimer: The visit summary below is not to be considered part of the above Progress Note. Hospital Course: Impression: Hyponatremia, mild- dilutional Near-syncopal event Hx of orthostatic near-syncope Anemia, acute on chronic HTN HLD Anxiety DM2 S/P Left TKR. Atrial Fib, rate controlled Plan: 09/17/2017 Suspect that hyponatremia is dilutional, given positive response to diuretic therapy. Based on exam, am concerned she has some underlying aortic insufficiency clinically (echo was ok, however). given near-syncopal event. This may have worsened with volume being offloaded. Her BP is low normal, and she is on multiple anti-hypertensives. Recommend continue to hold HCTZ. Decrease Lisinopril to 1/2 dose- 10mg PO BID. May need to hold Amlodipine. Continue BB for HR control. Allow mild passive hypertension to prevent near-syncope. She is on multiple medications that can contribute to low sodium in the elderly - HCTZ, Celexa, Tramadol. Hold HCTZ. Continue Celexa. DC Tramadol. She is tolerating Oxycodone- should be ok for pain control. Will check orthostatic vitals now. If her symptoms improve, should be ok to dismiss home in AM. Will recheck a CBC now. Labs in AM. Will need to see Dr. Pa in the next week following discharge. Thank you for the consult- we will follow this pt with you.
[2017-09-17] MEDS: ATORVASTATIN 20 MG TABLET PO SCH (21:05)
[2017-09-17] MEDS: INSULIN ASPART 100unit/ml INJECTION SQ PRN (21:06)
[2017-09-17] MEDS: LISINOPRIL 10 MG TABLET PO SCH (21:06)
[2017-09-17] MEDS: SENNOSIDES 8.6 MG TABLET PO SCH (21:06)
[2017-09-18] MEDS: Oxycodone *IR* 5 MG TABLET PO PRN ×2 (03:08→13:01)
[2017-09-18] MEDS: METOCLOPRAMIDE 5mg TABLET PO SCH ×4 (06:13→20:04)
[2017-09-18] MEDS: LEVOTHYROXINE 100 MCG TABLET PO SCH (06:13)
[2017-09-18] MEDS: NOZIN NASAL SWAB NAS SCH ×4 (06:13→21:57)
[2017-09-18] MEDS ORDERED: FUROSEMIDE 40 MG/4 ML INJECTION IVP ONE (09:00)
--- NOTE | 2017-09-18 09:02 | Progress Note ---
- Date 09/18/17 Subjective: Luz is still having quite a bit of pain in her knee. She's trying to push through it, and she can tell she's making progress, but pain continues to be a limiting factor. She is also feeling a bit short of breath, most notable when she lies supine. She feels queasy when she gets up. No chest pain. She denies abdominal pain but has been constipated. Objective Vital signs: Temperature 98.5 F 09/18/17 07:14 Pulse Rate 76 09/18/17 07:33 Respiratory Rate 12 09/18/17 07:14 Blood Pressure 141/67 H 09/18/17 07:33 Pulse Oximetry 98 09/18/17 07:14 Height/Weight/BMI: Height 1.55 m Weight 91.73 kg Body Mass Index 35.9 - Constitutional Present: no acute distress, well nourished, well developed - Routine HEENT Exam Head: Present: normocephalic Eye: Present: PERRL. Absent: conjunctival icterus, scleral injection - Routine Respiratory Exam Present: CTA bilaterally - Routine Cardiovascular Exam Present: S1, S2, irregularly irregular - Routine Abdominal Exam Present: soft, non distended, non tender. Absent: normoactive bowel sounds ( hyperactive) - Routine Extremities Exam Present: edema (L>R) Comments: polar pack on left knee - Routine Skin Exam Present: dry, warm - Routine Neurological Exam Present: alert, oriented X3, CN II-XII intact, normal speech - Routine Psychiatric Exam Present: normal affect, normal thought process, cooperative Results - Labs CBC & Chem 7: 09/18/17 04:15 09/18/17 04:16 Assessment and Plan (1) Hyponatremia Status: Acute Assessment and Plan: Impression: Hyponatremia, mild- dilutional Near-syncopal event Hx of orthostatic near-syncope Anemia, acute on chronic HTN HLD Anxiety DM2 S/P Left TKR. Atrial Fib, rate controlled Obesity with BMI 38.2 Plan: 09/18/2017 Na decreased to 130; weight declined from yesterday though still above baseline. Pt also c/o orthopnea. Will give Lasix 40 mg IV x1. Likely will dc HCTZ at time of discharge d/t hyponatremia. Hgb stabilized -- 9.3. B12 pending. BP elevated this am 141/67 - may be able to resume norvasc soon and/or increase lisinopril to home dose. Constipation - increase bowel regimen. DVT Prophylaxis: SCD's GI Prophylaxis: Omeprazole Resuscitation Status: Full Code - Time spent with patient Time with patient PN: 25 minutes - Physician Narrative Physician: Rob May MD Narrative: Date: 09/18/17 Time: 1330 Have independently interviewed and examined pt. Chart reviewed. Case discussed with my MORTGAGE LOAN OFFICER. Care plan developed with my supervision; agree with above. Doing okay today-just gotten back from a walk with nursing before I came in to visit (I saw her out walking in halls and doing well, but I know it was taking more effort than it looked). Pain problematic-hurting more today since having increased activities as compared to yesterday. Doing okay with pain medications , but reports nausea and constipation. Breathing well. Blood sugars stable. Lungs: decreased CV: regular AB: soft nt BS present MSE: awake alert, appears to have some confusion Plan: Continue with supportive post op care. Encourage continuation of therapy. May need to decrease narcotic pain medications. Work on bowel function. Would stop HCTZ at discharge. Hospital Course Summary Disclaimer: The visit summary below is not to be considered part of the above Progress Note. Hospital Course: Impression: Hyponatremia, mild- dilutional Near-syncopal event Hx of orthostatic near-syncope Anemia, acute on chronic HTN HLD Anxiety DM2 S/P Left TKR. Atrial Fib, rate controlled Plan: 09/17/2017 Suspect that hyponatremia is dilutional, given positive response to diuretic therapy. Based on exam, am concerned she has some underlying aortic insufficiency clinically (echo was ok, however). given near-syncopal event. This may have worsened with volume being offloaded. Her BP is low normal, and she is on multiple anti-hypertensives. Recommend continue to hold HCTZ. Decrease Lisinopril to 1/2 dose- 10mg PO BID. May need to hold Amlodipine. Continue BB for HR control. Allow mild passive hypertension to prevent near-syncope. She is on multiple medications that can contribute to low sodium in the elderly - HCTZ, Celexa, Tramadol. Hold HCTZ. Continue Celexa. DC Tramadol. She is tolerating Oxycodone- should be ok for pain control. Will check orthostatic vitals now. If her symptoms improve, should be ok to dismiss home in AM. Will recheck a CBC now. Labs in AM. Will need to see Dr. Pa in the next week following discharge. 09/18/2017 Na decreased to 130; weight declined from yesterday though still above baseline. Pt also c/o orthopnea. Will give Lasix 40 mg IV x1. Likely will dc HCTZ at time of discharge d/t hyponatremia. Hgb stabilized -- 9.3. B12 pending. BP elevated this am 141/67 - may be able to resume norvasc soon and/or increase lisinopril to home dose.
[2017-09-18] MEDS ORDERED: BISACODYL 10 MG SUPPOSITORY RECTALLY PRN (09:07)
[2017-09-18] MEDS: OMEPRAZOLE 20 MG CAPSULE PO SCH (09:22)
[2017-09-18] MEDS: ACETAMINOPHEN 325 MG TABLET PO SCH ×4 (09:23→20:04)
[2017-09-18] MEDS: ATENOLOL 25 MG TABLET PO SCH (09:24)
[2017-09-18] MEDS: APIXABAN 5 MG TABLET PO SCH ×2 (09:24→20:04)
[2017-09-18] MEDS: CITALOPRAM 40 MG TABLET PO SCH (09:24)
[2017-09-18] MEDS: MAGNESIUM OXIDE 400 MG TABLET PO SCH (09:24)
[2017-09-18] MEDS: DOCUSATE SODIUM 100 MG CAPSULE PO SCH ×2 (09:24→20:05)
[2017-09-18] MEDS: LISINOPRIL 10 MG TABLET PO SCH ×2 (09:29→20:04)
[2017-09-18] MEDS: POLYETHYL GLYCOL 3350 17gm PACKET PO SCH ×2 (09:30→09:31)
[2017-09-18] MEDS: SENNA + DOCUSATE TABLET PO SCH ×3 (09:31→20:05)
--- NOTE | 2017-09-18 09:58 | Orthopedic Progress Note ---
Date: Date: 09/18/17 Time: 952 Subjective/Severity of Illness: Luz is sitting up in the chair this morning. She reports her nausea has improved significantly. Continues to have pain with left knee, but Roxicodone does make pain tolerable. Her left knee does feel stiff this morning. Discussed in depth dizziness symptoms. Patient states she usually has dizziness with standing first thing in the morning. Has been seeing PT for dizziness. Denies vertigo or history of requiring mehul's manuever. She did seen ENT years ago for these symptoms. She denies any CP, SOA. Last BM 09/14. Denies any abdominal pain. Weight decreased today, though still up from admission. Na+ 130 Hgb stable at 9.3. Orthopedic Exam Vital signs: Temperature 96.8 F 09/15/17 07:30 Pulse Rate 82 09/15/17 07:30 Respiratory Rate 14 09/15/17 07:30 Blood Pressure 133/62 09/15/17 07:30 Pulse Oximetry 96 09/15/17 07:30 - Constitutional General Appearance: Present: alert, orientated x3, cooperative, no acute distress - Respiratory Exam Present: CTA bilaterally, non-labored - Cardiovascular Exam Present: irregular rhythm, pedal pulses intact - Abdominal Exam Present: soft, normoactive BS x4. Absent: tenderness, distended - Extremities Exam Present: edema (L>R), pulses intact (expected post-operative edema Left>Right leg, ecchymosis surrounding knee and distally. ) - Dressing Dressing: bloody drainage (Minimal bloody drainge distal dressing. ) - Integumentary Exam Present: pink, warm, dry - Neurological Exam Present: intact to light touch, no deficits - Psychiatric Exam Present: alert, oriented - Labs Result Diagrams: 09/18/17 04:15 09/18/17 04:16 Abnormal lab results 09/17/17 09/17/17 09/18/17 Range/Units 12:56 14:58 04:15 RBC 2.97 L 3.20 L (4.00-5.20) M/MM3 Hgb 8.6 L 9.3 L (12-16) GM/DL Hct 25.9 L 27.5 L (36-46) % Immature Gran % (Auto) 0.6 H (0.0-0.5) % Neut % (Auto) 80.2 H 74.0 H (33-66) % Lymph % (Auto) 12.2 L 15.1 L (23-45) % Lymph # (Auto) 0.9 L (1-4.8) T/MM3 Abs Immat Gran (auto) 0.05 H (0.00-0.03) T/MM3 Sodium 133 L (136-146) MEQ/L BUN (7-17) MG/DL Calculated Osmolality (261-280) MOSM/KG Calcium (8.4-10.2) MG/DL Magnesium (1.6-2.3) MG/DL Specimen Hemolysis (0-25) 09/18/17 Range/Units 04:16 RBC (4.00-5.20) M/MM3 Hgb (12-16) GM/DL Hct (36-46) % Immature Gran % (Auto) (0.0-0.5) % Neut % (Auto) (33-66) % Lymph % (Auto) (23-45) % Lymph # (Auto) (1-4.8) T/MM3 Abs Immat Gran (auto) (0.00-0.03) T/MM3 Sodium 130 L (136-146) MEQ/L BUN 20.0 H (7-17) MG/DL Calculated Osmolality 255 L (261-280) MOSM/KG Calcium 8.1 L (8.4-10.2) MG/DL Magnesium 2.4 H (1.6-2.3) MG/DL Specimen Hemolysis 41 H (0-25) H & H 09/15/17 09/16/17 09/17/17 Range/Units 04:24 04:27 08:10 Hgb 10.6 L 9.2 L D 8.6 L (12-16) GM/DL Hct (36-46) % 09/17/17 09/18/17 Range/Units 14:58 04:15 Hgb 8.6 L 9.3 L (12-16) GM/DL Hct 25.9 L 27.5 L (36-46) % Orthopedic Assessment and Plan (1) Primary osteoarthritis of left knee Status: Chronic Assessment and Plan: Nausea- significantly improved today. Continue Zofran ODT prn and scheduled reglan. Hyponatremia- hospitalist consulted and managing medically Home Eliquis 5mg BID restarted to cover for DVT prophylaxis. Mobilize with PT / OT. Case mgmt for discharge planning. Plan on discharging home with home health. - Anticoagulation Therapy Anticoagulation: Resume home anticoagulant - Additional Diagnoses Diabetes: resume oral medications Anemia: no intervention required, labs monitored Hospital Course Summary Disclaimer: The visit summary below is not to be considered part of the above Progress Note. Hospital Course: Impression: Hyponatremia, mild- dilutional Near-syncopal event Hx of orthostatic near-syncope Anemia, acute on chronic HTN HLD Anxiety DM2 S/P Left TKR. Atrial Fib, rate controlled Plan: 09/17/2017 Suspect that hyponatremia is dilutional, given positive response to diuretic therapy. Based on exam, am concerned she has some underlying aortic insufficiency clinically (echo was ok, however). given near-syncopal event. This may have worsened with volume being offloaded. Her BP is low normal, and she is on multiple anti-hypertensives. Recommend continue to hold HCTZ. Decrease Lisinopril to 1/2 dose- 10mg PO BID. May need to hold Amlodipine. Continue BB for HR control. Allow mild passive hypertension to prevent near-syncope. She is on multiple medications that can contribute to low sodium in the elderly - HCTZ, Celexa, Tramadol. Hold HCTZ. Continue Celexa. DC Tramadol. She is tolerating Oxycodone- should be ok for pain control. Will check orthostatic vitals now. If her symptoms improve, should be ok to dismiss home in AM. Will recheck a CBC now. Labs in AM. Will need to see Dr. Pa in the next week following discharge. 09/18/2017 Na decreased to 130; weight declined from yesterday though still above baseline. Pt also c/o orthopnea. Will give Lasix 40 mg IV x1. Likely will dc HCTZ at time of discharge d/t hyponatremia. Hgb stabilized -- 9.3. B12 pending. BP elevated this am 141/67 - may be able to resume norvasc soon and/or increase lisinopril to home dose.
[2017-09-18] MEDS: ONDANSETRON 4 MG/2 ML INJECTION IVP PRN (13:02)
[2017-09-18] MEDS ORDERED: SCOPOLAMINE PATCH REMOVAL TD SCH (13:45)
[2017-09-18] MEDS: ATORVASTATIN 20 MG TABLET PO SCH (20:04)
[2017-09-18] MEDS: ALPRAZolam 0.25 MG TABLET PO PRN (22:00)
[2017-09-18] MEDS: ONDANSETRON ODT 4 MG TABLET PO PRN (22:01)
[2017-09-19] MEDS: LEVOTHYROXINE 100 MCG TABLET PO SCH (06:05)
[2017-09-19] MEDS: NOZIN NASAL SWAB NAS SCH (06:05)
[2017-09-19] MEDS: METOCLOPRAMIDE 5mg TABLET PO SCH (06:06)
[2017-09-19] MEDS ORDERED: Oxycodone *IR* 5 MG TABLET PO PRN (08:13)
[2017-09-19] MEDS: POLYETHYL GLYCOL 3350 17gm PACKET PO SCH ×2 (09:02→09:21)
[2017-09-19] MEDS: MAGNESIUM OXIDE 400 MG TABLET PO SCH (09:20)
[2017-09-19] MEDS: APIXABAN 5 MG TABLET PO SCH (09:20)
[2017-09-19] MEDS: LISINOPRIL 10 MG TABLET PO SCH (09:20)
[2017-09-19] MEDS: CITALOPRAM 40 MG TABLET PO SCH (09:20)
[2017-09-19] MEDS: SENNA + DOCUSATE TABLET PO SCH (09:21)
[2017-09-19] MEDS: DOCUSATE SODIUM 100 MG CAPSULE PO SCH (09:21)
[2017-09-19] MEDS: ACETAMINOPHEN 325 MG TABLET PO SCH ×2 (09:21→12:26)
[2017-09-19] MEDS: ATENOLOL 25 MG TABLET PO SCH (09:21)
[2017-09-19] MEDS: OMEPRAZOLE 20 MG CAPSULE PO SCH (09:21)
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
[2017-09-19] MEDS: INSULIN ASPART 100unit/ml INJECTION SQ PRN (10:34)
[2017-09-19] MEDS: AMLODIPINE 5 MG TABLET PO SCH ×2 (10:35→11:16)
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
[2017-09-19] MEDS ORDERED: FALL RISK - PHARMACY CONSULT MC ONE (12:23)
[2017-09-19 12:30] VITALS: BP 149/65; PULSE 72; RESP 16; TEMP 97.6; O2SAT 98
--- NOTE | 2017-09-19 12:52 | Discharge Summary ---
Orthopedic Discharge Info Date of admission: 09/14/17 06:40 Primary care physician: Sharon Pa MD Attending Physician: Mike Fernandez MD Consults: 09/14/17 06:48 Consult to Anesthesiology [CONS] Routine Reason For Exam: Preoperative Assessment 09/14/17 11:52 Case Management Consult [CONS] Routine Reason For Exam: Discharge Planning DME-Walker [CONS] Routine Height: 5 ft 1 in Weight: 86.3 kg Total Joint Outpatient Therapy [CONS] Routine Comment: Remove dressing in 2 weeks 09/17/17 14:37 Physician Consult [CONS] Routine Consulting Provider: Aria Leung Reason For Exam: Hyponatremia Ordering Provider has Notified Quality Head: Yes Comment: Per TO Shu Shook. 09/19/17 09:42 Doctor [Physician Consult] [CONS] Routine Consulting Provider: Yancy Chowdhury Reason For Exam: SNF Ordering Provider has Notified Quality Head: Yes - Discharge Diagnosis (1) Primary osteoarthritis of left knee Status: Chronic - Procedures Procedures: Procedures Hip bearing surface, [id number] (03/24/09) Total hip replacement (03/24/09) TKA 09/14/17 - Laboratory Result Diagrams: 09/19/17 05:30 09/19/17 05:30 Laboratory: Abnormal lab results 09/19/17 09/19/17 Range/Units 05:30 05:30 RBC 3.35 L (4.00-5.20) M/MM3 Hgb 9.6 L (12-16) GM/DL Hct 29.1 L (36-46) % Neut % (Auto) 77.5 H (33-66) % Lymph % (Auto) 12.6 L (23-45) % Lymph # (Auto) 0.8 L (1-4.8) T/MM3 Sodium 135 L (136-146) MEQ/L Glucose 113 H (65-110) MG/DL Calcium 8.0 L (8.4-10.2) MG/DL H & H 09/15/17 09/16/17 09/17/17 Range/Units 04:24 04:27 08:10 Hgb 10.6 L 9.2 L D 8.6 L (12-16) GM/DL Hct (36-46) % 09/17/17 09/18/17 09/19/17 Range/Units 14:58 04:15 05:30 Hgb 8.6 L 9.3 L 9.6 L (12-16) GM/DL Hct 25.9 L 27.5 L 29.1 L (36-46) % Orthopedic Discharge HPI - HPI Comments This patient was admitted for elective surgical tx of end stage degenerative joint disease that failed to respond to conservative treatment. Further details of this is found in the admission H&P. Orthopedic Hospital Course Hospital course: 09/19/17 12:47 After appropriate preoperative clearance and signing of operative consent, the patient was given IV antibiotics, according to orthopedic protocol. The patient was taken to the operating room and underwent elective total knee arthroplasty on 09/14/17. Following surgery, antibiotics were discontinued less than 24 hours according to joint protocol. Resumed her home Eliquis and SCDs added for DVT prevention. The dressing was clean, dry, and intact except for some slight shadowing. The dressing was changed before discharge and wound looked good. Pain control was obtained via Tramadol and Roxicodone but pt eventually settled on Roxicodone. The Roxicodone caused some nausea and confusion but seemed to be dose dependent. HR has remained stable without problems with her a fib. B-blockers have been restarted. BPs were a little low and adjustments were made by the hospitalist service. Pt developed some hyponatremia that was managed with fluid restriction and some diuresis. Bowel motivation addressed with scheduled and PRN medications. Early mobilization was initiated through PT services. Discharge arrangements made by a collaborative effort between the patient and Case Management. 09/17/2017 Suspect that hyponatremia is dilutional, given positive response to diuretic therapy. Based on exam, am concerned she has some underlying aortic insufficiency clinically (echo was ok, however). given near-syncopal event. This may have worsened with volume being offloaded. Her BP is low normal, and she is on multiple anti-hypertensives. Recommend continue to hold HCTZ. Decrease Lisinopril to 1/2 dose- 10mg PO BID. May need to hold Amlodipine. Continue BB for HR control. Allow mild passive hypertension to prevent near-syncope. She is on multiple medications that can contribute to low sodium in the elderly - HCTZ, Celexa, Tramadol. Hold HCTZ. Continue Celexa. DC Tramadol. She is tolerating Oxycodone- should be ok for pain control. Will check orthostatic vitals now. If her symptoms improve, should be ok to dismiss home in AM. Will recheck a CBC now. Labs in AM. Will need to see Dr. Pa in the next week following discharge. 09/18/2017 Na decreased to 130; weight declined from yesterday though still above baseline. Pt also c/o orthopnea. Will give Lasix 40 mg IV x1. Likely will dc HCTZ at time of discharge d/t hyponatremia. Hgb stabilized -- 9.3. B12 pending. BP elevated this am 141/67 - may be able to resume norvasc soon and/or increase lisinopril to home dose. 09/19/2017 Na improved to 135. Hgb up to 9.6 BP elevated - resume amlodipine. Vit B12 394 (normal) Lorazepam dc'd and added to allergy list as having an adverse rxn. Roxicodone decreased to 1 tab. Reglan dc'd. D/W family, RN, and Shu Shook APRN. Pt/family interested in SNF - CM to look into options. Poss dc today if encephalopathy improves. Follow-up is scheduled in 2-3 weeks. Discharge instructions given by orthopedic providers and nursing staff at discharge. Discharge condition was good. Care extended to > 2 midnight stays?: Yes Discharge Plan - Med Rec/Dispo Referrals/Follow Up: Sharon Pa MD [Primary Care Provider] - 09/21/17 1:00 pm Gregory Moore PA [Physician Neonatal Icu Coordinator] - 10/09/17 9:30 am [place] Inst[place]: [facility] [place]op Instructions Additional Instructions: [facility] WILL CONTACT YOU TO MAKE APPOINTMENT TO START SERVICES FOR THERAPY. Prescriptions: New Acetaminophen [Tylenol] 650 mg PO QID tab Docusate Sodium [Colace] 100 mg PO BID cap Ondansetron Odt [Zofran Odt Tablet] 4 mg PO Q4H PRN #20 tab PRN Reason: Nausea &/Or Vomiting Oxycodone *IR* [Roxicodone *Ir*] 5 mg PO Q3H PRN #60 tab PRN Reason: Pain Continue Magnesium Oxide [Magnesium] 500 mg PO DAILY Cholecalciferol (Vitamin D3) [Vitamin D3] 1 tab PO DAILY Citalopram [Celexa] 40 mg PO DAILY Apixaban [Eliquis] 5 mg PO BID Omeprazole Magnesium [Prilosec Otc] 20 mg PO DAILY Atenolol [Tenormin] 25 mg PO DAILY Amlodipine [Norvasc] 5 mg PO HS ALPRAZolam [Xanax 0.25 mg] 0.25 mg PO BID PRN PRN Reason: Anxiety Levothyroxine Tab [Synthroid] 100 mcg PO DAILY #0 Metformin HCl [Glucophage] 500 mg PO BID #0 Potassium 1 tab PO DAILY Albuterol HFA Inhaler [Ventolin Hfa 90 mcg/actuation] 2 puff INH QID PRN PRN Reason: Allergy Symptoms Atorvastatin [Lipitor] 1 tab PO AM Changed Lisinopril [Prinivil] 10 mg PO BID #1 Discontinued HydroCHLOROthiazide [Hydrodiuril] 25 mg PO DAILY Discharge Instructions/Outpatient Orders: BMP - Basic Metabolic - [facility] Time Frame: 3 Days, Location: None Selected - Disposition 03 To SNU Not [facility] ([facility]) - Dismissal Complete Discharge Instructions are:: Complete
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
== END 2017-09-19 15:05 | DRG 470 ==
LOC: SUR 06:39 → SRG 06:40 → NMC.PERIOP 06:43 → SRG 11:41
PROVIDERS: ADMIT Orthopaedic Surgery; ATTEND Orthopaedic Surgery